=== PATIENT | male | born 1955 | race Asian ===

== ENCOUNTER 2018-11-05 16:35 | Inpatient (IN) | payer MEDICAID ==
[~2018-11-05] VITALS: Ht 167.6 cm; Wt 72.6 kg
[2018-11-05 16:35] VITALS: BP 144/79
--- NOTE | 2018-11-05 16:35 | NUR ---
ED Nurse Note: BROUGHT IN BY RA29 FROM HOME DUE TO DIZZINESS AND VOMITTING. A/OX4. DENIES CP AND SOB AND BLURRY VISION.
--- NOTE | 2018-11-05 16:38 | NUR ---
ED Nurse Note: NO S/S OF STROKE. NO FACIAL DRIP NOTED.
[2018-11-05] MEDS ORDERED: Meclizine 25mg tab ORAL ONE (16:45)
--- NOTE | 2018-11-05 16:45 | NUR ---
ED Nurse Note: ALL BLOOD SPECIMENS SENT DOWN TO THE LAB.
--- NOTE | 2018-11-05 16:48 | Emergency Room Report ---
History of Present Illness General Chief Complaint: Dizziness Source: Patient Present Illness HPI Patient presents with complaints of severe dizziness denies any chest pain denies any palpitation patient reports that the dizziness has made him nauseated and vomited several times is notices worse with standing and ambulation Denies any recent medications Denies any travel or trauma Denies any focal weakness denies any dysuria frequency Patient presents by paramedics Allergies: Coded Allergies: No Known Allergies (Unverified , 11/05/18) Patient History Past Medical History: see triage record Pertinent Family History: none Reviewed Nursing Documentation: PMH: Agreed; PSxH: Agreed Nursing Documentation-PMH Hx Cardiac Problems: No - Hep B Review of Systems All Other Systems: negative except mentioned in HPI Physical Exam Vital Signs Date Time Temp Pulse Resp B/P (MAP) Pulse Ox O2 Delivery O2 Flow Rate FiO2 11/05/18 16:29 80 18 97 11/05/18 16:29 152/92 Room Air Sp02 EP Interpretation: reviewed, normal General Appearance: mild distress - Anxious Head: normocephalic, atraumatic Eyes: bilateral eye PERRL, bilateral eye EOMI ENT: hearing grossly normal, normal pharynx, TMs + canals normal, uvula midline Neck: full range of motion, supple, no meningismus, no bony tend Respiratory: lungs clear, normal breath sounds, no rhonchi, no respiratory distress, no retraction, no accessory muscle use Cardiovascular #1: normal peripheral pulses, regular rate, rhythm, no edema, no gallop, no JVD, no murmur Gastrointestinal: normal bowel sounds, non tender, soft, no mass, no organomegaly, non-distended, no guarding, no hernia, no pulsatile mass, no rebound Genitourinary: no CVA tenderness Musculoskeletal: normal inspection Neurologic: oriented x3, responsive, toy stuffer III-XII nml as tested, motor strength/ tone normal, sensory intact Psychiatric: mood/affect normal Skin: warm/dry, palpation normal, other - Multiple small patches left upper arm lower leg, patient reports they are lidocaine patches Lymphatic: normal inspection, no adenopathy Medical Decision Making Diagnostic Impression: Primary Impression: Dizziness Additional Impressions: Dizziness of unknown cause Dehydration ER Course Patient is a fairly complex patient with multiple differential to consideration including but not limited to cardiac cardiopulmonary and vascular emergencies Given the severe dizziness neurological, neurosurgical pathology also entertained Patient CT head does not show any acute disease Blood work does show significant lactic acidosis No other obvious source of infection patient provided with further hydration And at this time admitted for further inpatient care given the significant dizziness Labs Test 11/05/18 14:53 11/05/18 14:55 11/05/18 18:20 11/05/18 18:35 White Blood Count 8.8 K/UL (4.8-10.8) Red Blood Count 5.27 M/UL (4.70-6.10) Hemoglobin 17.2 G/DL (14.2-18.0) Hematocrit 50.1 % (42.0-52.0) Mean Corpuscular Volume 95 FL (80-99) Mean Corpuscular Hemoglobin 32.6 PG (27.0-31.0) Mean Corpuscular Hemoglobin Concent 34.3 G/DL (32.0-36.0) Red Cell Distribution Width 11.0 % (11.6-14.8) Platelet Count 125 K/UL (150-450) Mean Platelet Volume 6.9 FL (6.5-10.1) Neutrophils (%) (Auto) 64.8 % (45.0-75.0) Lymphocytes (%) (Auto) 29.3 % (20.0-45.0) Monocytes (%) (Auto) 4.5 % (1.0-10.0) Eosinophils (%) (Auto) 0.5 % (0.0-3.0) Basophils (%) (Auto) 0.8 % (0.0-2.0) Sodium Level 139 MMOL/L (136-145) Potassium Level 3.5 MMOL/L (3.5-5.1) Chloride Level 103 MMOL/L (98-107) Carbon Dioxide Level 20 MMOL/L (21-32) Anion Gap 16 mmol/L (5-15) Blood Urea Nitrogen 17 mg/dL (7-18) Creatinine 1.1 MG/DL (0.55-1.30) Estimat Glomerular Filtration Rate > 60 mL/min (>60) Glucose Level 108 MG/DL (74-106) Lactic Acid Level 4.30 mmol/L (0.4-2.0) 1.60 mmol/L (0.66-2.22) Calcium Level 9.1 MG/DL (8.5-10.1) Total Bilirubin 1.2 MG/DL (0.2-1.0) Direct Bilirubin 0.2 MG/DL (0.0-0.3) Aspartate Amino Transf (AST/SGOT) 39 U/L (15-37) Alanine Aminotransferase (ALT/SGPT) 48 U/L (12-78) Alkaline Phosphatase 87 U/L (46-116) Total Creatine Kinase 128 U/L (26-308) Creatine Kinase MB 1.0 NG/ML (0.0-3.6) Creatine Kinase MB Relative Index 0.7 Troponin I 0.000 ng/mL (0.000-0.056) Total Protein 7.9 G/DL (6.4-8.2) Albumin 4.0 G/DL (3.4-5.0) Globulin 3.9 g/dL Albumin/Globulin Ratio 1.0 (1.0-2.7) Lipase 137 U/L (73-393) Urine Color Pale yellow Urine Appearance Clear Urine pH 7 (4.5-8.0) Urine Specific [place] 1.010 (1.005-1.035) Urine Protein Negative (NEGATIVE) Urine Glucose (UA) Negative (NEGATIVE) Urine Ketones 1+ (NEGATIVE) Urine Blood Negative (NEGATIVE) Urine Nitrite Negative (NEGATIVE) Urine Bilirubin Negative (NEGATIVE) Urine Urobilinogen Normal MG/DL (0.0-1.0) Urine Leukocyte Esterase 1+ (NEGATIVE) Urine RBC 0-2 /HPF (0 - 0) Urine WBC 2-4 /HPF (0 - 0) Urine Squamous Epithelial Cells None /LPF (NONE/OCC) Urine Amorphous Sediment Few /LPF (NONE) Urine Bacteria Moderate /HPF (NONE) Rhythm Strip Diag. Results EP Interpretation: yes Rate: 70 Rhythm: NSR, no PVC's, no ectopy Chest X-Ray Diagnostic Results Chest X-Ray Diagnostic Results : Chest X-Ray Ordered: Yes # of Views/Limited/Complete: 1 View Indication: Chest Pain EP Interpretation: Yes Interpretation: no consolidation, no effusion, no pneumothorax Impression: No acute disease Electronically Signed by: Estevan Alex DO CT/MRI/US Diagnostic Results CT/MRI/US Diagnostic Results : Impression CT head no acute disease Last Vital Signs Date Time Temp Pulse Resp B/P (MAP) Pulse Ox O2 Delivery O2 Flow Rate FiO2 11/05/18 16:35 63 20 144/79 100 Room Air Status: improved Disposition: ADMITTED INPATIENT Condition: Serious Scripts Unable to Obtain Active Prescriptions or Reported Meds Estevan Alex DO Nov 05, 2018 16:48
[2018-11-05 17:32] LABS: BASOPHILS % (AUTO) 0.8 % (0.0-2.0); EOSINOPHILS % (AUTO) 0.5 % (0.0-3.0); HEMATOCRIT 50.1 % (42.0-52.0); HEMOGLOBIN 17.2 G/DL (14.2-18.0); LYMPHOCYTES % (AUTO) 29.3 % (20.0-45.0); MEAN CORPUSCULAR VOLUME 95 FL (80-99); MONOCYTES % (AUTO) 4.5 % (1.0-10.0); NEUTROPHILS % (AUTO) 64.8 % (45.0-75.0); PLATELET COUNT 125 K/UL (150-450); RED BLOOD COUNT 5.27 M/UL (4.70-6.10); WHITE BLOOD COUNT 8.8 K/UL (4.8-10.8)
[2018-11-05 17:34] LABS: APPEARANCE,URINE CLEAR; BILIRUBIN, URINE NEGATIVE (NEGATIVE); COLOR,URINE PALE YELLOW; GLUCOSE, URINE (UA) NEGATIVE (NEGATIVE); KETONES,URINE 1+ (NEGATIVE); NITRITE,URINE NEGATIVE (NEGATIVE); PH,URINE 7 (4.5-8.0); PROTEIN,URINE NEGATIVE (NEGATIVE); UROBILINOGEN,URINE NORMAL MG/DL (0.0-1.0)
[2018-11-05 17:37] LABS: LEUKOCYTE ESTERASE ,URINE 1+ (NEGATIVE)
[2018-11-05 17:37] LABS: ANION GAP 16 mmol/L (5-15); BLOOD UREA NITROGEN 17 mg/dL (7-18); CALCIUM 9.1 MG/DL (8.5-10.1); CARBON DIOXIDE 20 MMOL/L (21-32); CHLORIDE 103 MMOL/L (98-107); CREATININE 1.1 MG/DL (0.55-1.30); POTASSIUM 3.5 MMOL/L (3.5-5.1); SODIUM 139 MMOL/L (136-145)
--- NOTE | 2018-11-05 17:37 | Diagnostic Imaging Report ---
EXAM: XR Chest, 1 View CLINICAL HISTORY: SOB TECHNIQUE: Frontal view of the chest. COMPARISON: No relevant prior studies available. FINDINGS: Lungs: Reduced lung volumes with accentuation of markings. No confluent consolidation. Consolidative atelectasis in the left lung base. Pleural space: Unremarkable. No pneumothorax. Heart: Unremarkable. No cardiomegaly. Mediastinum: Large mediastinal silhouette. Bones/joints: No acute fracture. IMPRESSION: Reduced lung volumes with accentuation of markings. No confluent consolidation.
--- NOTE | 2018-11-05 17:42 | Diagnostic Imaging Report ---
EXAM: CT Head Without Intravenous Contrast CLINICAL HISTORY: DIZZY TECHNIQUE: Axial computed tomography images of the head/brain without intravenous contrast. CTDI is 70.38 mGy and DLP is 1446 mGy-cm. One or more of the following dose reduction techniques were used: automated exposure control, adjustment of the mA and/or kV according to patient size, use of iterative reconstruction technique. COMPARISON: No relevant prior studies available. FINDINGS: Brain: No hemorrhage. No edema. Ventricles: No ventriculomegaly. Bones/joints: No acute fracture. Chronic appearing deformity of the right medial orbital wall Soft tissues: Unremarkable. Sinuses: No acute sinusitis. Mastoid air cells: No mastoid effusion. IMPRESSION: No acute intracranial process.
[2018-11-05 17:52] LABS: ALANINE AMINOTRANSFERASE 48 U/L (12-78); ALKALINE PHOSPHATASE 87 U/L (46-116); ASPARTATE AMINO TRANSFERASE 39 U/L (15-37); BILIRUBIN,TOTAL 1.2 MG/DL (0.2-1.0); CREATINE KINASE 128 U/L (26-308)
[2018-11-05 17:53] LABS: BILIRUBIN,DIRECT 0.2 MG/DL (0.0-0.3)
[2018-11-05] MEDS ORDERED: Sodium Chloride 2,200 ML IVLG ONE (18:00)
[2018-11-05] MEDS ORDERED: Piperacillin/Tazobactam 3.375 GM in NS 110 ML IVPB ONE (18:00)
--- NOTE | 2018-11-05 18:20 | NUR ---
ED Nurse Note: lactic reflex sent down to the lab.
[2018-11-05 18:41] VITALS: BP 140/85
--- NOTE | 2018-11-05 18:43 | NUR ---
ED Nurse Note: CONTACTED LAB TO RUN DRUG SCREEN AND LACTIC ACID REFLEX
--- NOTE | 2018-11-05 19:13 | NUR ---
HAND-OFF: Report given to AARTI Felix. Pt is sleeping in bed. No s/s of distress.
--- NOTE | 2018-11-05 19:30 | NUR ---
ED Nurse Note: RECIEVED PT ON GURNEY SLEEPING,A ROUSES EASILY TO VERBAL STIMULI, PT WAITING FOR HOSPITAL BED FOR ADMISSION, PT IS ON CARDIAC MONITORING, HAS PATENT SALINE LOCK, DENIES CP, NO SOB OR LABORED BREATHING, V/S STABLE, PT C/O HAVING MILD NAUSEA, MD INFORMED, WILL RESUME CARE ORDERED AND PREPAE FOR ADMISSION.
[2018-11-05 20:15] VITALS: BP 134/81
[2018-11-05] MEDS ORDERED: Ketorolac 30mg Inj IV ONE (20:45)
--- NOTE | 2018-11-05 21:00 | NUR ---
ED Nurse Note: PT CONTINUES TO REST IN BED, MD GAVE ORDERS FOR PAIN AND NAUSEA, PT STATES HE WANTS IT LATER, S/S REAOLVED NOW, PT USING URINAL, NO CP, NO SOB, CONTINUING TO WAIT FOR ROOM PLACEMENT FOR ADMISISON.
--- NOTE | 2018-11-05 22:50 | NUR ---
ED Nurse Note: PT NOW HAS ROOM FOR ADMISSION, MEDS GIVEN FOR PAIN AN DNAUSEA, PT WANTS NOW, PT GIVEN TORADOL 30MG, RECIEVED FROM 60MG VIAL, NO 30MG VIALS AVAILABLE, PT NOW BEING TAKEN TO FLOOR BED FOR ADMISISON, REPORT CALLED TO AARTI LAWRENCE ON UNIT, BELONGINGS LIST COMPLETED, MED REC DONE, PT BEING TAKEN TO FLOOR BED VIA GURNEY WITH ER-TECH, NAD NOTED.
[2018-11-05] MEDS ORDERED: Ketorolac 60mg Inj IM ONE (23:00)
--- NOTE | 2018-11-05 23:30 | NUR ---
NURSE NOTES: Pt arrived to the unit via gurney, VSS, no resp distress, orienting to room and unit.
[2018-11-06] VITALS: BP 151/90
[2018-11-06] MEDS ORDERED: Meclizine 25mg tab ORAL PRN (00:15)
[2018-11-06] MEDS: D5 1/2NS 1,000 ML IV SCH ×3 (00:45→20:44)
[2018-11-06 04:00] VITALS: BP 140/89
--- NOTE | 2018-11-06 07:21 | NUR ---
HAND-OFF: Report given to Muriel BROUSSARD.
--- NOTE | 2018-11-06 07:25 | NUR ---
NURSE NOTES: Report received from outgoing RN, rounds made. Patient awake, resting in supine position in bed. Patient alert, oriented x4, calm. No distress noted on RA. Denies chest pain, dizziness, SOB, or NV. IVF infusing to RAC as ordered, site asymptomatic. LAC heplock in place, clean/intact. Bilateral SCDs applied to BLE. Educated patient on reason for SCD use, verbalized understanding. Call light in reach, bed in lowest position, will continue to monitor.
[2018-11-06 08:00] VITALS: BP 118/76
[2018-11-06 08:40] LABS: EOSINOPHILS % (AUTO) 1.4 % (0.0-3.0); HEMATOCRIT 48.9 % (42.0-52.0); HEMOGLOBIN 16.5 G/DL (14.2-18.0); LYMPHOCYTES % (AUTO) 21.1 % (20.0-45.0); MEAN CORPUSCULAR VOLUME 98 FL (80-99); MONOCYTES % (AUTO) 6.6 % (1.0-10.0); NEUTROPHILS % (AUTO) 69.9 % (45.0-75.0); PLATELET COUNT 121 K/UL (150-450); RED BLOOD COUNT 5.01 M/UL (4.70-6.10); RED CELL DISTRIBUTION WIDTH 11.4 % (11.6-14.8); WHITE BLOOD COUNT 6.1 K/UL (4.8-10.8)
[2018-11-06 09:24] LABS: ALANINE AMINOTRANSFERASE 40 U/L (12-78); ALBUMIN 3.2 G/DL (3.4-5.0); ALKALINE PHOSPHATASE 73 U/L (46-116); ANION GAP 7 mmol/L (5-15); ASPARTATE AMINO TRANSFERASE 26 U/L (15-37); BILIRUBIN,TOTAL 1.4 MG/DL (0.2-1.0); BLOOD UREA NITROGEN 12 mg/dL (7-18); CALCIUM 8.3 MG/DL (8.5-10.1); CARBON DIOXIDE 24 MMOL/L (21-32); CHLORIDE 107 MMOL/L (98-107); CREATININE 0.9 MG/DL (0.55-1.30); POTASSIUM 3.4 MMOL/L (3.5-5.1); SODIUM 138 MMOL/L (136-145)
[2018-11-06 09:26] LABS: BILIRUBIN,DIRECT 0.2 MG/DL (0.0-0.3)
[2018-11-06 12:00] VITALS: BP 114/73
--- NOTE | 2018-11-06 13:50 | Consultation ---
History of Present Illness General Date patient seen: Nov 07, 2018 Time patient seen: 16:33 Chief Complaint: Dizziness Present Illness HPI Patient is a 62 y/o male who presents with complaints of severe dizziness , denied any chest pain or palpitations. He reports that the dizziness has made him nauseated and vomited several times, worse with standing and ambulation Allergies: Coded Allergies: No Known Allergies (Unverified , 11/05/18) Medication History Unable to Obtain Active Prescriptions or Reported Meds Patient History Healthcare decision maker Resuscitation status Advanced Directive on File No Review of Systems Constitutional: Reports: no symptoms Eye: Reports: no symptoms ENT: Reports: no symptoms Respiratory: Reports: no symptoms Cardiovascular: Reports: no symptoms Gastrointestinal: Reports: no symptoms Genitourinary: Reports: no symptoms Musculoskeletal: Reports: no symptoms Skin: Reports: no symptoms Psychiatric: Reports: no symptoms Neurological: Reports: focal weakness, syncope, dizziness Endocrine: Reports: no symptoms Hematologic/Lymphatic: Reports: no symptoms Physical Exam General Appearance: no apparent distress, alert Lines, tubes and drains: peripheral HEENT: normocephalic, atraumatic, anicteric, mucous membranes moist, PERRL Neck: non-tender, normal alignment, supple, normal inspection Respiratory/Chest: chest wall non-tender, lungs clear, normal breath sounds, no respiratory distress Cardiovascular/Chest: normal peripheral pulses, normal rate, regular rhythm Abdomen: normal bowel sounds, non tender Genitourinary/Rectal: normal rectal exam Extremities: normal range of motion, non-tender, normal inspection, no calf tenderness, normal capillary refill Skin Exam: normal pigmentation, warm/dry, cyanotic Neurologic: 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-XII grossly normal, no motor/sensory deficits Last 24 Hour Vital Signs Date Time Temp Pulse Resp B/P (MAP) Pulse Ox O2 Delivery O2 Flow Rate FiO2 11/06/18 06:29 98.0 11/06/18 04:00 98.0 62 140/89 (106) 11/06/18 00:00 97.6 83 151/90 (110) 11/05/18 23:55 Room Air 11/05/18 23:30 97.6 11/05/18 23:15 98.8 62 16 134/81 99 Room Air 71 11/05/18 20:15 98.8 71 16 134/81 99 Room Air 11/05/18 18:41 62 13 140/85 99 Room Air 11/05/18 16:35 63 20 Room Air 11/05/18 16:35 63 20 144/79 100 Room Air 11/05/18 16:29 80 18 152/92 97 Room Air 11/05/18 16:29 80 18 97 Intake and Output 11/05/18 11/06/18 19:00 07:00 Output Total 400 ml Balance -400 ml Output Urine Total 400 ml Laboratory Tests Test 11/05/18 14:53 11/05/18 14:55 11/05/18 18:20 11/05/18 18:35 White Blood Count 8.8 K/UL (4.8-10.8) Red Blood Count 5.27 M/UL (4.70-6.10) Hemoglobin 17.2 G/DL (14.2-18.0) Hematocrit 50.1 % (42.0-52.0) Mean Corpuscular Volume 95 FL (80-99) Mean Corpuscular Hemoglobin 32.6 PG (27.0-31.0) H Mean Corpuscular Hemoglobin Concent 34.3 G/DL (32.0-36.0) Red Cell Distribution Width 11.0 % (11.6-14.8) L Platelet Count 125 K/UL (150-450) L Mean Platelet Volume 6.9 FL (6.5-10.1) Neutrophils (%) (Auto) 64.8 % (45.0-75.0) Lymphocytes (%) (Auto) 29.3 % (20.0-45.0) Monocytes (%) (Auto) 4.5 % (1.0-10.0) Eosinophils (%) (Auto) 0.5 % (0.0-3.0) Basophils (%) (Auto) 0.8 % (0.0-2.0) Sodium Level 139 MMOL/L (136-145) Potassium Level 3.5 MMOL/L (3.5-5.1) Chloride Level 103 MMOL/L (98-107) Carbon Dioxide Level 20 MMOL/L (21-32) L Anion Gap 16 mmol/L (5-15) H Blood Urea Nitrogen 17 mg/dL (7-18) Creatinine 1.1 MG/DL (0.55-1.30) Estimat Glomerular Filtration Rate > 60 mL/min (>60) Glucose Level 108 MG/DL (74-106) H Lactic Acid Level 4.30 mmol/L (0.4-2.0) H 1.60 mmol/L (0.66-2.22) Pending Calcium Level 9.1 MG/DL (8.5-10.1) Total Bilirubin 1.2 MG/DL (0.2-1.0) H Direct Bilirubin 0.2 MG/DL (0.0-0.3) Aspartate Amino Transf (AST/SGOT) 39 U/L (15-37) H Alanine Aminotransferase (ALT/SGPT) 48 U/L (12-78) Alkaline Phosphatase 87 U/L (46-116) Total Creatine Kinase 128 U/L (26-308) Creatine Kinase MB 1.0 NG/ML (0.0-3.6) Creatine Kinase MB Relative Index 0.7 Troponin I 0.000 ng/mL (0.000-0.056) Total Protein 7.9 G/DL (6.4-8.2) Albumin 4.0 G/DL (3.4-5.0) Globulin 3.9 g/dL Albumin/Globulin Ratio 1.0 (1.0-2.7) Lipase 137 U/L (73-393) Urine Color Pale yellow Urine Appearance Clear Urine pH 7 (4.5-8.0) Urine Specific [place] 1.010 (1.005-1.035) Urine Protein Negative (NEGATIVE) Urine Glucose (UA) Negative (NEGATIVE) Urine Ketones 1+ (NEGATIVE) H Urine Blood Negative (NEGATIVE) Urine Nitrite Negative (NEGATIVE) Urine Bilirubin Negative (NEGATIVE) Urine Urobilinogen Normal MG/DL (0.0-1.0) Urine Leukocyte Esterase 1+ (NEGATIVE) H Urine RBC 0-2 /HPF (0 - 0) H Urine WBC 2-4 /HPF (0 - 0) Urine Squamous Epithelial Cells None /LPF (NONE/OCC) Urine Amorphous Sediment Few /LPF (NONE) H Urine Bacteria Moderate /HPF (NONE) H Test 11/06/18 06:39 White Blood Count 6.1 K/UL (4.8-10.8) Red Blood Count 5.01 M/UL (4.70-6.10) Hemoglobin 16.5 G/DL (14.2-18.0) Hematocrit 48.9 % (42.0-52.0) Mean Corpuscular Volume 98 FL (80-99) Mean Corpuscular Hemoglobin 33.0 PG (27.0-31.0) H Mean Corpuscular Hemoglobin Concent 33.7 G/DL (32.0-36.0) Red Cell Distribution Width 11.4 % (11.6-14.8) L Platelet Count 121 K/UL (150-450) L Mean Platelet Volume 7.1 FL (6.5-10.1) Neutrophils (%) (Auto) 69.9 % (45.0-75.0) Lymphocytes (%) (Auto) 21.1 % (20.0-45.0) Monocytes (%) (Auto) 6.6 % (1.0-10.0) Eosinophils (%) (Auto) 1.4 % (0.0-3.0) Basophils (%) (Auto) 1.0 % (0.0-2.0) Sodium Level 138 MMOL/L (136-145) Potassium Level 3.4 MMOL/L (3.5-5.1) L Chloride Level 107 MMOL/L (98-107) Carbon Dioxide Level 24 MMOL/L (21-32) Anion Gap 7 mmol/L (5-15) Blood Urea Nitrogen 12 mg/dL (7-18) Creatinine 0.9 MG/DL (0.55-1.30) Estimat Glomerular Filtration Rate > 60 mL/min (>60) Glucose Level 100 MG/DL (74-106) Calcium Level 8.3 MG/DL (8.5-10.1) L Total Bilirubin 1.4 MG/DL (0.2-1.0) H Direct Bilirubin 0.2 MG/DL (0.0-0.3) Aspartate Amino Transf (AST/SGOT) 26 U/L (15-37) Alanine Aminotransferase (ALT/SGPT) 40 U/L (12-78) Alkaline Phosphatase 73 U/L (46-116) Total Protein 6.5 G/DL (6.4-8.2) Albumin 3.2 G/DL (3.4-5.0) L Globulin 3.3 g/dL Albumin/Globulin Ratio 1.0 (1.0-2.7) Microbiology Date/Time Source Procedure Growth Status 11/05/18 14:55 Urine,Clean Catch Urine Culture - Preliminary NO GROWTH Resulted Height (Feet): 5 Height (Inches): 6.00 Weight (Pounds): 160 Medications Current Medications Medications (Trade) Dose Ordered Sig/Nathaniel Route PRN Reason Start Time Stop Time Status Last Admin Dose Admin Acetaminophen (Tylenol) 650 mg Q6H PRN ORAL Mild Pain/Temp > 100.5 11/06/18 00:15 12/06/18 00:14 11/06/18 05:59 Dextrose/Sodium Chloride 1,000 ml @ 100 mls/hr Q10H IV 11/06/18 00:15 12/06/18 00:14 11/06/18 10:29 Meclizine HCl (Antivert) 25 mg Q6H PRN ORAL for dizziness 11/06/18 00:15 12/06/18 00:14 11/06/18 05:58 Ondansetron HCl (Zofran) 4 mg Q4H PRN IVP Nausea & Vomiting 11/06/18 03:00 12/06/18 02:59 Assessment/Plan Status: stable Assessment/Plan Assessment/Plan Problem List: (1) Lactic acidosis Assessment & Plan: Elevated lactic acid level of unclear etiology, however resolved after fluids and on repeat leab testing Cont euvolemia Advance diet (2) Dizziness Assessment & Plan: Unclear etiology Carotid duplex, consider echo ICD Codes: R42 - Dizziness and giddiness Iraj Sims MD Nov 06, 2018 13:50
--- NOTE | 2018-11-06 15:17 | History and Physical ---
History of Present Illness General Date patient seen: Nov 06, 2018 Time patient seen: 09:00 Reason for Hospitalization: Dizziness Present Illness HPI Patient is a 62 y/o male who presents with complaints of severe dizziness , denied any chest pain or palpitations. He reports that the dizziness has made him nauseated and vomited several times, worse with standing and ambulation Denies any recent medications Denies any travel or trauma Denies any focal weakness, or any dysuria or frequency Patient presented by paramedics to [facility] [place] ED last night. Was found to have an elevated lactic acid level, fluid resuscitated Allergies: Coded Allergies: No Known Allergies (Unverified , 11/05/18) Medication History Unable to Obtain Active Prescriptions or Reported Meds Patient History Limited by: language barrier Healthcare decision maker Resuscitation status Advanced Directive on File No Social History Social History: (1) Family history in first degree relatives is unremarkable (2) No significant past medical history (3) No significant social history Review of Systems ROS Narrative CONSTITUTIONAL: No weight loss, fever, chills, weakness or fatigue. HEENT: Eyes: No visual loss, blurred vision, double vision or yellow sclerae. Ears, Nose, Throat: No hearing loss, sneezing, congestion, runny nose or sore throat. SKIN: No rash or itching. CARDIOVASCULAR: No chest pain, chest pressure or chest discomfort. No palpitations or edema. RESPIRATORY: No shortness of breath, cough or sputum. GASTROINTESTINAL: No anorexia or diarrhea. No abdominal pain or blood. Did report nausea, vomiting NEUROLOGICAL: No headache, syncope, paralysis, ataxia, numbness or tingling in the extremities. No change in bowel or bladder control. Does report +dizziness MUSCULOSKELETAL: No muscle, back pain, joint pain or stiffness. HEMATOLOGIC: No anemia, bleeding or bruising. LYMPHATICS: No enlarged nodes. No history of splenectomy. PSYCHIATRIC: No history of depression or anxiety. ENDOCRINOLOGIC: No reports of sweating, cold or heat intolerance. No polyuria or polydipsia. ALLERGIES: No history of asthma, hives, eczema or rhinitis. Physical Exam Physical Exam Narrative General: alert, cooperative, no distress, appears stated age Head: normocephalic, without obvious abnormality, atraumatic Eyes: conjunctivae/corneas clear. PERRL, EOM's intact Throat: lips, mucosa, and tongue normal. MMM Neck: supple, symmetrical, trachea midline, and no JVD Lungs: clear to auscultation bilaterally Heart: regular rate and rhythm, S1, S2 normal, no murmur, click, rub or gallop Abdomen: soft, non-tender, non-distended, bowel sounds normal; no masses or organomegaly Extremities: extremities normal, atraumatic, no cyanosis or edema Pulses: 2+ and symmetric Skin: skin color, texture, turgor normal; no rashes or lesions Neurologic: grossly normal, no focal deficits Last 24 Hour Vital Signs Date Time Temp Pulse Resp B/P (MAP) Pulse Ox O2 Delivery O2 Flow Rate FiO2 11/06/18 08:00 98.2 75 18 118/76 (90) 98 11/06/18 06:29 98.0 11/06/18 04:00 98.0 62 140/89 (106) 11/06/18 00:00 97.6 83 151/90 (110) 11/05/18 23:55 Room Air 11/05/18 23:30 97.6 11/05/18 23:15 98.8 62 16 134/81 99 Room Air 71 11/05/18 20:15 98.8 71 16 134/81 99 Room Air 11/05/18 18:41 62 13 140/85 99 Room Air 11/05/18 16:35 63 20 Room Air 11/05/18 16:35 63 20 144/79 100 Room Air 11/05/18 16:29 80 18 152/92 97 Room Air 11/05/18 16:29 80 18 97 Intake and Output 11/05/18 11/06/18 19:00 07:00 Output Total 400 ml Balance -400 ml Output Urine Total 400 ml Laboratory Tests Test 11/05/18 18:20 11/05/18 18:35 11/06/18 06:39 Lactic Acid Level 1.60 mmol/L (0.66-2.22) Pending White Blood Count 6.1 K/UL (4.8-10.8) Red Blood Count 5.01 M/UL (4.70-6.10) Hemoglobin 16.5 G/DL (14.2-18.0) Hematocrit 48.9 % (42.0-52.0) Mean Corpuscular Volume 98 FL (80-99) Mean Corpuscular Hemoglobin 33.0 PG (27.0-31.0) H Mean Corpuscular Hemoglobin Concent 33.7 G/DL (32.0-36.0) Red Cell Distribution Width 11.4 % (11.6-14.8) L Platelet Count 121 K/UL (150-450) L Mean Platelet Volume 7.1 FL (6.5-10.1) Neutrophils (%) (Auto) 69.9 % (45.0-75.0) Lymphocytes (%) (Auto) 21.1 % (20.0-45.0) Monocytes (%) (Auto) 6.6 % (1.0-10.0) Eosinophils (%) (Auto) 1.4 % (0.0-3.0) Basophils (%) (Auto) 1.0 % (0.0-2.0) Sodium Level 138 MMOL/L (136-145) Potassium Level 3.4 MMOL/L (3.5-5.1) L Chloride Level 107 MMOL/L (98-107) Carbon Dioxide Level 24 MMOL/L (21-32) Anion Gap 7 mmol/L (5-15) Blood Urea Nitrogen 12 mg/dL (7-18) Creatinine 0.9 MG/DL (0.55-1.30) Estimat Glomerular Filtration Rate > 60 mL/min (>60) Glucose Level 100 MG/DL (74-106) Calcium Level 8.3 MG/DL (8.5-10.1) L Total Bilirubin 1.4 MG/DL (0.2-1.0) H Direct Bilirubin 0.2 MG/DL (0.0-0.3) Aspartate Amino Transf (AST/SGOT) 26 U/L (15-37) Alanine Aminotransferase (ALT/SGPT) 40 U/L (12-78) Alkaline Phosphatase 73 U/L (46-116) Total Protein 6.5 G/DL (6.4-8.2) Albumin 3.2 G/DL (3.4-5.0) L Globulin 3.3 g/dL Albumin/Globulin Ratio 1.0 (1.0-2.7) Height (Feet): 5 Height (Inches): 6.00 Weight (Pounds): 160 Medications Current Medications Medications (Trade) Dose Ordered Sig/Nathaniel Route PRN Reason Start Time Stop Time Status Last Admin Dose Admin Acetaminophen (Tylenol) 650 mg Q6H PRN ORAL Mild Pain/Temp > 100.5 11/06/18 00:15 12/06/18 00:14 11/06/18 05:59 Dextrose/Sodium Chloride 1,000 ml @ 100 mls/hr Q10H IV 11/06/18 00:15 12/06/18 00:14 11/06/18 10:29 Meclizine HCl (Antivert) 25 mg Q6H PRN ORAL for dizziness 11/06/18 00:15 12/06/18 00:14 11/06/18 05:58 Ondansetron HCl (Zofran) 4 mg Q4H PRN IVP Nausea & Vomiting 11/06/18 03:00 12/06/18 02:59 Assessment/Plan Problem List: (1) Lactic acidosis Assessment & Plan: Elevated lactic acid level of unclear etiology, however resolved after fluids and on repeat leab testing Cont euvolemia Advance diet Pt may have been dehydrated from a viral gastroenteritis that led to lactic acidosis ICD Codes: E87.2 - Acidosis SNOMED: 05182378 (2) Dizziness Assessment & Plan: Unclear etiology Cardiology consult Carotid duplex, consider echo ICD Codes: R42 - Dizziness and giddiness SNOMED: 736238237, [id number] Francois Atkinson MD Nov 06, 2018 15:17
[2018-11-06 16:00] VITALS: BP 116/79
--- NOTE | 2018-11-06 19:35 | NUR ---
HAND-OFF: Report given to Mónica BROUSSARD.
--- NOTE | 2018-11-06 19:40 | NUR ---
NURSE NOTES: Received report & pt from AARTI Llamas. Pt lying in bed, a&ox4, Estonian speaking with a little yoruba, in room air. No s/s of acute distress & no c/o pain at this time. IV site intact, LAC S/L'd & RAC with IVF running as ordered. SCDs on. Bed in lowest position, call light within reach. Will continue to monitor.
[2018-11-06 20:00] VITALS: BP 129/82
[2018-11-07] VITALS: BP 128/81
[2018-11-07 04:00] VITALS: BP 132/86
[2018-11-07] MEDS: D5 1/2NS 1,000 ML IV SCH (06:03)
--- NOTE | 2018-11-07 07:19 | NUR ---
HAND-OFF: Report given to AARTI Llamas.
--- NOTE | 2018-11-07 07:20 | NUR ---
NURSE NOTES: Report received from outgoing RN, rounds made. Patient resting in supine position in bed, alert/oriented x4, calm. Denies chest pain, SOB, NV or dizziness. Encouraged PO intake. IVF infusing to RAC without difficulty, site asymptomatic. Bilateral SCDs on. Encouraged CDB exercises. Call light in reach, bed in lowest position, will continue to monitor.
[2018-11-07 08:00] VITALS: BP 124/87
--- NOTE | 2018-11-07 09:50 | NUR ---
NURSE NOTES: Carotid Duplex Scan completed at bedside today at 0950 am.
[2018-11-07] MEDS ORDERED: D5 1/2NS 1000ml IV ONE (11:29)
[2018-11-07 12:00] VITALS: BP 145/86
--- NOTE | 2018-11-07 12:59 | Discharge Summary ---
Discharge Summary Hospital Course Date of Admission Nov 05, 2018 at 19:41 Date of Discharge November 07, 2018 Admitting Diagnosis SEVER DIZZINESS Reason for Hospitalization: lightheadedness HPI Nacho Aldana is a 62 year old male who was admitted on Nov 05, 2018 at 19:41 for Severe Dizziness. The patient had a lab and imaging workup that was neg. ACS was ruled out with serial ekg/trops. Carotid duplex was performed, seemed by cardiology and placed on cardiac monitoring. Pt symptoms resolved, workup was neg, ad after d/w Cardiology, pt was dced home with close outpt f/u with pcp Consultations Cardiology ([place]) Procedures None Hospital Course The patient had a lab and imaging workup that was neg. ACS was ruled out with serial ekg/trops. Carotid duplex was performed, seemed by cardiology and placed on cardiac monitoring. Pt symptoms resolved, workup was neg, ad after d/w Cardiology, pt was dced home with close outpt f/u with pcp Discharge Medications Medication Profile: Unable to Obtain Active Prescriptions or Reported Meds Discharge Condition Upon Discharge: stable Discharge Disposition Patient was discharged to Home () Discharge Diagnoses: (1) Dizziness (2) Lactic acidosis (3) Dehydration Francois Atkinson MD Nov 07, 2018 12:59
--- NOTE | 2018-11-07 13:08 | NUR ---
CASE MANAGEMENT: INITIAL REVIEW 62 YO M ROSIE FROM HOME CC: DIZZINESS PMHx: HEP B SI:SEVERE DIZZINESS. HR 80 RR 18 B/P 152/92 SATS 97% ON RA CO2 20 GLU 108 TBILI 1.2 AST 39 IS: NS BOLUS X2 MECLIZINE PO X1 ZOSYN IV X1 PATIENT ADMITTED TO MED/SURG 11/05/2018 @ 1941 DCP: PATIENT TO BE DISCHARGED TO HOME ONCE MEDICALLY CLEARED. PLAN OF CARE: CAROTID VERTEBRAL DUPLEX 11/07/2018 DISCHARGE TO HOME 11/07 Addendum: 11/08/18 at 2021 by Juana Nguyen CM [employer]
--- NOTE | 2018-11-07 13:10 | NUR ---
NURSE NOTES: Discharge instructions reviewed with patient, verbalized understanding. IVF and heplock x2 discontinued, no active bleeding. All belongings and discharge instructions sent with patient. Patient ambulated down to lobby with RN, stable. Patient discharged home via taxi at 1310.
== END 2018-11-07 13:10 | disposition home or self-care (01) | DRG 422 ==
LOC: EDBD 16:35 → EMR 16:50 → 3E 19:41 → EDBEDREQ 20:25
DX: E86.0 Dehydration (principal); E87.2 Acidosis; R42 Dizziness and giddiness
CPT/HCPCS: 36415; 70450; 71045; 80053; 81003; 82248; 82550; 82553; 83605; 83690; 84484; 85025; 87040; 87086; 93005; 93880; 96361; 96365; 96375; 96376; 99285; J2405; J8499